=== PATIENT | female | born 1975 | race Two or more races ===

== ENCOUNTER → 2017-04-17 | Outpatient (CLI) | payer OTHER | END | disposition home or self-care (01) | LOC: CRE 09:37 | DX: I25.10 Atherosclerotic heart disease of native coronary artery without angina pectoris (principal); Z98.61 Coronary angioplasty status | CPT/HCPCS: 93797 ==

== ENCOUNTER 2017-07-11 09:04 | Day surgery (SDC) | payer OTHER ==
[~2017-07-11 09:04] MED LIST: DIAZEPAM 5 MG TAB PO; DIPHENHYDRAMINE 50 MG CAP PO; FAMOTIDINE 20 MG TAB PO; SOD CHLORIDE 0.45% 1,000 ML IV
[2017-07-11] MEDS ORDERED: LIDOCAINE 1% (MDV) 20 ML INJ ×3 (10:10→10:43)
[2017-07-11 10:31] LABS: ADD MAN DIFF? NO
[2017-07-11 10:33] LABS: BASOPHILS % 0.4 % (0.0-2.0); EOSINOPHILS # 0.2 10^3/ul (0.0-0.5); EOSINOPHILS % 2.1 % (0.0-7.0); HEMATOCRIT 43.2 % (37.0-47.0); HEMOGLOBIN 13.6 g/dl (12.0-16.0); LYMPHOCYTES # 2.7 10^3/ul (0.8-2.9); MEAN CORPUSCULAR HEMOGLOBIN 26.3 pg (29.0-33.0); MEAN CORPUSCULAR HGB CONC 31.5 g/dl (32.0-37.0); MEAN CORPUSCULAR VOLUME 83.4 fl (82.0-101.0); MONOCYTE # 0.5 10^3/ul (0.3-0.9); MONOCYTES % 5.4 % (0.0-11.0); NEUTROPHIL # 5.5 10^3/ul (1.6-7.5); NEUTROPHILS % 61.9 % (39.0-77.0); PLATELET COUNT 296 10^3/UL (140-415); RED BLOOD COUNT 5.18 10^6/ul (4.20-5.40); RED CELL DISTRIBUTION WIDTH 17.4 % (11.5-14.5)
[2017-07-11 10:33] LABS: WHITE BLOOD COUNT 8.9 10^3/ul (4.8-10.8)
[2017-07-11] MEDS ORDERED: IODIXANOL LOCM 100 ML BTL (10:38)
[2017-07-11] MEDS ORDERED: FENTAnyl 50 MCG/ML VIAL (10:39)
[2017-07-11] MEDS ORDERED: MIDAZOLAM 1 MG/ML 2 ML INJ (10:39)
[2017-07-11 10:50] LABS: ALANINE AMINOTRANSFERASE 89 IU/L (13-69); ALBUMIN 4.5 g/dl (3.3-4.9); ALBUMIN/GLOBULIN RATIO 1.04; ALKALINE PHOSPHATASE 80 IU/L (42-121); ANION GAP 17 (8-16); ASPARTATE AMINO TRANSFERASE 104 IU/L (15-46); BILIRUBIN,INDIRECT 0.4 mg/dl (0-1.1); BILIRUBIN,TOTAL 0.4 mg/dl (0.2-1.3); CARBON DIOXIDE 28 mmol/L (21-31); CHLORIDE 102 mmol/L (97-110); CHOL/HDL RATIO 3.8 RATIO; CHOLESTEROL 123 mg/dl (100-200); GLUCOSE 178 mg/dl (70-220); HDL CHOLESTEROL 32 mg/dl (34-88); LDL CHOLESTEROL,CALCULATED 59 mg/dl; TOTAL PROTEIN 8.8 g/dl (6.1-8.1); TRIGLYCERIDES 162 mg/dl (0-149)
[2017-07-11 10:54] LABS: BLOOD UREA NITROGEN 17 mg/dl (7-20); POTASSIUM 4.1 mmol/L (3.5-5.1); SODIUM 143 mmol/L (135-144)
[2017-07-11 11:05] LABS: INR 1.01; PROTIME 13.4 Sec (11.9-14.9)
[2017-07-11 11:06] LABS: PARTIAL THROMBOPLASTIN TIME 29.3 Sec (25.0-35.0)
[2017-07-11] MEDS ORDERED: SOD CHLORIDE 0.9% 1,000 ML IV (11:41)
[2017-07-11] MEDS ORDERED: ACETAMINOPHEN 325 MG TAB PO (12:00)
[2017-07-11] MEDS ORDERED: ONDANSETRON 4 MG INJ IV (12:00)
[2017-07-11] MEDS ORDERED: AL HYDROX/MG HYDROX/SIMETH 30 ML CUP PO (12:00)
[2017-07-11] MEDS ORDERED: morphine 2 MG INJ IV (12:00)
== END 2017-07-11 18:30 | disposition home or self-care (01) ==
LOC: SDS 09:04
DX: I34.0 Nonrheumatic mitral (valve) insufficiency (principal); I65.23 Occlusion and stenosis of bilateral carotid arteries; I10 Essential (primary) hypertension; E78.5 Hyperlipidemia, unspecified; E78.00 Pure hypercholesterolemia, unspecified
CPT/HCPCS: 71045; 80053; 80061; 85025; 85610; 85730; 93005; 93458

== ENCOUNTER 2018-08-27 23:07 | Emergency (ER) | payer OTHER ==
[2018-08-28] MEDS: ALBUTEROL 0.083% (NEB) 2.5 MG/3 ML AMP NEB (00:20)
[2018-08-28] MEDS: IPRATROPIUM (NEB) 0.5 MG/2.5 ML AMP NEB (00:20)
== END 2018-08-28 01:04 | disposition home or self-care (01) ==
LOC: FTE 08-28 01:04
DX: J06.9 Acute upper respiratory infection, unspecified (principal); I10 Essential (primary) hypertension; E03.9 Hypothyroidism, unspecified; Z79.02 Long term (current) use of antithrombotics/antiplatelets; Z79.82 Long term (current) use of aspirin
CPT/HCPCS: 94664; 99283-25

== ENCOUNTER 2018-11-11 12:50 | Observation (INO) | payer OTHER ==
[2018-11-11 13:50] LABS: ADD MAN DIFF? NO
[2018-11-11 13:58] LABS: BASOPHILS % 0.5 % (0.0-2.0); EOSINOPHILS # 0.2 10^3/ul (0.0-0.5); EOSINOPHILS % 2.5 % (0.0-7.0); HEMATOCRIT 40.5 % (37.0-47.0); HEMOGLOBIN 12.3 g/dl (12.0-16.0); LYMPHOCYTES # 2.8 10^3/ul (0.8-2.9); LYMPHOCYTES % 32.3 % (15.0-51.0); MEAN CORPUSCULAR HEMOGLOBIN 25.3 pg (29.0-33.0); MEAN CORPUSCULAR HGB CONC 30.4 g/dl (32.0-37.0); MEAN CORPUSCULAR VOLUME 83.3 fl (82.0-101.0); MEAN PLATELET VOLUME 9.6 fl (7.4-10.4); MONOCYTE # 0.5 10^3/ul (0.3-0.9); MONOCYTES % 5.2 % (0.0-11.0); NEUTROPHIL # 5.2 10^3/ul (1.6-7.5); NEUTROPHILS % 59.3 % (39.0-77.0); PLATELET COUNT 292 10^3/UL (140-415); RED BLOOD COUNT 4.86 10^6/ul (4.20-5.40); RED CELL DISTRIBUTION WIDTH 17.2 % (11.5-14.5)
[2018-11-11 13:58] LABS: WHITE BLOOD COUNT 8.8 10^3/ul (4.8-10.8)
[2018-11-11] MEDS: ASPIRIN 325 MG TAB PO (14:01)
[2018-11-11] MEDS: NITROGLYCERIN 2% 1 GM OINT PKT TD (14:03)
[2018-11-11 14:16] LABS: ANION GAP 9 (5-13); BLOOD UREA NITROGEN 10 mg/dl (7-20); CALCIUM 8.9 mg/dl (8.4-10.2); CARBON DIOXIDE 25 mmol/L (21-31); CHLORIDE 105 mmol/L (97-110); CREATININE 0.58 mg/dl (0.44-1.00); Estimated GFR > 60 mL/min (>60); GLUCOSE 122 mg/dl (70-220); POTASSIUM 3.9 mmol/L (3.5-5.1); SODIUM 139 mmol/L (135-144)
[2018-11-11 14:27] LABS: TROPONIN-I < 0.012 ng/ml (0.000-0.120)
[2018-11-11] MEDS: ONDANSETRON (ODT) 4 MG TAB ODT (15:40)
[2018-11-11] MEDS: HYDROCODONE/APAP (10/325) TAB PO (15:40)
[2018-11-11] MEDS ORDERED: NACL 0.9% 3 ML SYG IV (16:00)
[2018-11-11] MEDS ORDERED: ONDANSETRON 4 MG INJ IV (16:00)
[2018-11-11] MEDS: ACETAMINOPHEN 325 MG TAB PO (16:08)
[2018-11-11 16:48] LABS: HEMOGLOBIN A1C 7.8 % (0-5.9)
[2018-11-11 20:17] LABS: CREATINE KINASE 48 IU/L (23-200)
[2018-11-11 20:30] LABS: CK INDEX 0.5; CK-MB 0.23 ng/ml (0.0-2.4); TROPONIN-I < 0.012 ng/ml (0.000-0.120)
[2018-11-11] MEDS: NITROGLYCERIN (SL) 0.4 MG TAB SL (21:20)
[2018-11-11] MEDS: RANOLAZINE (SR) 500 MG TAB PO (22:32)
[2018-11-11] MEDS: METOPROLOL 50 MG TAB PO (22:32)
[2018-11-11] MEDS: ATORVASTATIN 40 MG TAB PO (22:32)
[2018-11-11] MEDS: ACET/BUTAL/CAFF TAB PO (22:35)
[2018-11-11] MEDS: morphine 2 MG INJ IV (22:36)
[2018-11-11] MEDS ORDERED: HYDROmorphONE 0.5 MG/0.5 ML SYG IV (23:00)
[2018-11-11] MEDS ORDERED: NITROGLYCERIN (SL) 0.4 MG TAB SL (23:00)
[2018-11-12] MEDS: ZOLPIDEM 5 MG TAB PO (01:02)
[2018-11-12 02:02] LABS: CREATINE KINASE 49 IU/L (23-200)
[2018-11-12 02:14] LABS: CK INDEX 0.4; CK-MB < 0.22 ng/ml (0.0-2.4); TROPONIN-I < 0.012 ng/ml (0.000-0.120)
[2018-11-12] MEDS: LEVOTHYROXINE 100 MCG TAB PO (06:24)
[2018-11-12 08:37] LABS: ADD MAN DIFF? NO
[2018-11-12 09:05] LABS: ANION GAP 9 (5-13); BLOOD UREA NITROGEN 13 mg/dl (7-20); CALCIUM 8.9 mg/dl (8.4-10.2); CARBON DIOXIDE 25 mmol/L (21-31); CHLORIDE 105 mmol/L (97-110); CREATININE 0.56 mg/dl (0.44-1.00); Estimated GFR > 60 mL/min (>60); GLUCOSE 144 mg/dl (70-220); SODIUM 139 mmol/L (135-144)
[2018-11-12] MEDS: ASPIRIN (EC) 325 MG TAB PO (09:07)
[2018-11-12] MEDS: ROPINIROLE 0.25 MG TAB PO (09:07)
[2018-11-12] MEDS: ESCITALOPRAM 10 MG TAB PO (09:08)
[2018-11-12] MEDS: METOPROLOL 25 MG TAB PO (09:09)
[2018-11-12] MEDS: CLOPIDOGREL 75 MG TAB PO (09:09)
[2018-11-12] MEDS: FUROSEMIDE 20 MG TAB PO (09:09)
[2018-11-12] MEDS: AMLODIPINE 10 MG TAB PO (09:10)
[2018-11-12] MEDS: RANOLAZINE (SR) 500 MG TAB PO (09:11)
[2018-11-12] MEDS: LISINOPRIL 10 MG TAB PO (09:11)
[2018-11-12 09:13] LABS: PHOSPHORUS 4.4 mg/dl (2.5-4.9)
[2018-11-12 09:13] LABS: CHOL/HDL RATIO 7.5 RATIO; CHOLESTEROL 189 mg/dl (100-200); HDL CHOLESTEROL 25 mg/dl (34-88); LDL CHOLESTEROL,CALCULATED 129 mg/dl; MAGNESIUM 1.8 mg/dl (1.7-2.5); TRIGLYCERIDES 177 mg/dl (0-149)
[2018-11-12 09:16] LABS: TROPONIN-I < 0.012 ng/ml (0.000-0.120)
[2018-11-12 09:27] LABS: FREE T4 (FREE THYROXINE) 1.04 ng/dl (0.64-1.79)
[2018-11-12 09:35] LABS: BASOPHILS % 0.4 % (0.0-2.0); EOSINOPHILS # 0.2 10^3/ul (0.0-0.5); EOSINOPHILS % 2.8 % (0.0-7.0); HEMATOCRIT 38.7 % (37.0-47.0); HEMOGLOBIN 11.6 g/dl (12.0-16.0); LYMPHOCYTES % 28.8 % (15.0-51.0); MEAN CORPUSCULAR HEMOGLOBIN 25.1 pg (29.0-33.0); MEAN CORPUSCULAR VOLUME 83.6 fl (82.0-101.0); MONOCYTE # 0.4 10^3/ul (0.3-0.9); MONOCYTES % 5.7 % (0.0-11.0); NEUTROPHIL # 4.2 10^3/ul (1.6-7.5); PLATELET COUNT 269 10^3/UL (140-415); RED BLOOD COUNT 4.63 10^6/ul (4.20-5.40); RED CELL DISTRIBUTION WIDTH 17.1 % (11.5-14.5)
[2018-11-12 09:35] LABS: WHITE BLOOD COUNT 6.8 10^3/ul (4.8-10.8)
[2018-11-12] MEDS ORDERED: GLUCOSE GEL 15 GRAM TUBE BUCCAL (12:30)
[2018-11-12] MEDS ORDERED: DEXTROSE 50% 50 ML SYRINGE IV ×2 (12:30)
[2018-11-12] MEDS ORDERED: GLUCAGON 1 MG INJ IM (12:30)
[2018-11-12] MEDS ORDERED: GLUCOSE GEL 15 GRAM TUBE PO ×2 (12:30)
[2018-11-12] MEDS: REGADENOSON 0.4 MG/5 ML SYG (14:00)
[2018-11-12] MEDS: INSULIN ASPART [NOVOLOG] 3 ML PEN SC (15:36)
== END 2018-11-12 18:10 | disposition home or self-care (01) ==
LOC: E/R 12:50 → TEL 15:26
DX: R07.89 Other chest pain (principal); I25.10 Atherosclerotic heart disease of native coronary artery without angina pectoris; Z95.5 Presence of coronary angioplasty implant and graft; I10 Essential (primary) hypertension; E78.5 Hyperlipidemia, unspecified; E03.9 Hypothyroidism, unspecified; F32.9 Major depressive disorder, single episode, unspecified; E11.9 Type 2 diabetes mellitus without complications; E66.01 Morbid (severe) obesity due to excess calories; Z68.43 Body mass index [BMI] 50.0-59.9, adult; R51 Headache; Z79.82 Long term (current) use of aspirin; D32.9 Benign neoplasm of meninges, unspecified
CPT/HCPCS: 36415; 70450; 71045; 78452; 80048; 80061; 81025; 82550; 82553; 82962; 83036; 83735; 84100; 84439; 84443; 84484; 85025; 93005; 93017; 93306; 99285-25; G0378